=== PATIENT | male | born 1995 | race African-American/Black ===

== ENCOUNTER 2017-07-10 00:37 | Emergency (ER) | payer OTHER ==
[~2017-07-10] VITALS: Ht 188 cm; Wt 90.7 kg
[~2017-07-10 00:37] MED LIST: IBUPROFEN 600600 M1 PO
[2017-07-10] MEDS ORDERED: NORCO 5-325 TA1 EACH PO (03:03)
[2017-07-10 03:24] VITALS: BP 132/88
== END 2017-07-10 03:27 | disposition home or self-care (01) ==
LOC: ER 00:37
DX: S16.1XXA Strain of muscle, fascia and tendon at neck level, initial encounter (principal); S13.4XXA Sprain of ligaments of cervical spine, initial encounter; R07.89 Other chest pain; R51 Headache; F10.99 Alcohol use, unspecified with unspecified alcohol-induced disorder; Z87.891 Personal history of nicotine dependence; V89.2XXA Person injured in unspecified motor-vehicle accident, traffic, initial encounter; Y93.I9 Activity, other involving external motion; Y92.89 Other specified places as the place of occurrence of the external cause; Y99.8 Other external cause status